=== PATIENT | female | born 1980 | race Caucasian/White ===

== ENCOUNTER 2016-08-19 10:47 | Emergency (ER) | payer MEDICARE ==
--- NOTE | 2016-08-19 13:21 | UC ---
Complaint Female HPI - HPI Summary HPI Summary: Gail has been having increased abdominal pressure, she feels like she needs to urinate and nothing comes, pain starts in center of lower abdomen and radiates right. denies buring with urination, fever, or flank pain. patient does have a history of right engulfed ovarian cyst - History Of Current Complaint Chief Complaint: UCGU Stated Complaint: URINARY COMPLAINT Time Seen by Provider: 08/19/16 12:22 Hx Obtained From: Patient Hx Last Menstrual Period: q 2 weeks, LMP 1.5 weeks ago Onset/Duration: Sudden Onset, Lasting Days Timing: Intermittent Severity Initially: Moderate Severity Currently: Moderate Pain Intensity: 6 Pain Scale Used: 0-10 Numeric Character: Dull, Cramping Aggravating Factor(s): Movement, Nothing - sitting Alleviating Factor(s): Position - Allergies/Home Medications Allergies/Adverse Reactions: Allergies Allergy/AdvReac Type Severity Reaction Status Date / Time Aspirin Allergy Difficulty Verified 08/19/16 12:46 Breathing Levofloxacin [From Levaquin] Allergy See Comment Verified 08/19/16 12:46 seasonal Allergy Sneezing Uncoded 08/19/16 12:46 Home Medications: Home Medications Albuterol HFA INHALER* [Ventolin HFA Inhaler*] 2 puff INH TID PRN 08/19/16 [ History Confirmed 08/19/16] Baclofen TAB* [Lioresal TAB*] 10 mg PO BID PRN 08/19/16 [History Confirmed 08/19] Budesonide/Formote 80/4.5(NF) [Symbicort 80/4.5 (NF)] 2 puff INH DAILY 08/19/16 [History Confirmed 08/19/16] Diclofenac 1% GEL (NF) [Voltaren 1% GEL (NF)] 1 applic TOPICAL TID PRN 08/19/16 [History Confirmed 08/19/16] Ipratropium HFA INHALER* [Atrovent Hfa Inhaler*] 2 puff INH DAILY 08/19/16 [ History Confirmed 08/19/16] Montelukast Sodium TAB* [Singulair TAB*] 10 mg PO DAILY 08/19/16 [History Confirmed 08/19/16] Omeprazole CAP* [Prilosec CAP* 20 MG] 40 mg PO DAILY 08/19/16 [History Confirmed 08/19/16] Tizanidine HCl 4 mg PO BEDTIME 08/19/16 [History Confirmed 08/19/16] Triamcinolone 0.1% CREAM (NF) [Kenalog 0.1% Cream (NF)] 1 applic TOPICAL QID [History Confirmed 08/19/16] celeCOXIB CAP* [CeleBREX CAP*] 200 mg PO DAILY 08/19/16 [History Confirmed 08/19] traMADol TAB* [Ultram*] 50 mg PO Q8H PRN 08/19/16 [History Confirmed 08/19/16] PMH/Surg Hx/FS Hx/Imm Hx Previously Healthy: Yes Respiratory History Of: Reports: COPD, Asthma - Surgical History Surgical History: Yes Surgery Procedure, Year, and Place: Ureteral stent for UPJ obstruction, placed then removed at age 23 yrs; partial thyroidectomy for pre cancerous cells and benign mas, B/ l knee surgeries x 5; tubal ligation, moles removed - Family History Known Family History: Positive: Hypertension - Social History Alcohol Use: Occasionally Substance Use Type: Excessive Caffeine Substance Use Comment - Amount & Last Used: 3 cups coffee daily Smoking Status (MU): Heavy Every Day Tobacco Smoker Review of Systems Constitutional: Negative Skin: Negative Eyes: Negative ENT: Negative Respiratory: Negative Cardiovascular: Negative Gastrointestinal: Abdominal Pain Genitourinary: Urgency Motor: Negative Neurovascular: Negative Musculoskeletal: Negative Neurological: Negative Psychological: Negative All Other Systems Reviewed And Are Negative: Yes Physical Exam Triage Information Reviewed: Yes Appearance: Well-Appearing, Well-Nourished, Pain Distress Vital Signs: Initial Vital Signs Temp 98.9 F 08/19/16 12:33 Pulse 88 08/19/16 12:33 Resp 18 08/19/16 12:33 BP 131/76 08/19/16 12:33 Vital Signs Reviewed: Yes Eye Exam: Normal Eyes: Positive: Conjunctiva Clear ENT Exam: Normal ENT: Positive: Normal ENT inspection, Hearing grossly normal, Pharynx normal, TMs normal Dental Exam: Normal Neck exam: Normal Neck: Positive: Supple, Nontender, No Lymphadenopathy Respiratory Exam: Normal Respiratory: Positive: Chest non-tender, Lungs clear, Normal breath sounds Cardiovascular Exam: Normal Cardiovascular: Positive: RRR, No Murmur, Pulses Normal - soft, tenderness in right lower abdomen, no rebound tenderness, palpable mass in right lower quad, does have history of cyst. no pain in pubic area, no signs of peritonitis. resonant sound over the mass in right side Abdominal Exam: Normal, Other Bowel Sounds: Positive: Present Musculoskeletal Exam: Normal Musculoskeletal: Positive: Strength Intact, ROM Intact, No Edema Neurological Exam: Normal Neurological: Positive: Alert, Muscle Tone Normal Psychological Exam: Normal Skin Exam: Normal Complaint Female Dx - Course Course Of Treatment: hx obtained, exam performed UA negative will send for culutre, recommedn increased fluid intake and ibuprofen for cyst pain. will call patient for any need to treat the urine culture. referral given for [facility] in the area, patient is new to [facility]. - Differential Dx/Diagnosis Differential Diagnosis/HQI/PQRI: Ovarian Cyst, Pelvic Inflammatory Disease, Sexually Transmitted Disease, Ureteral Stone, Urinary Tract Infection Provider Diagnoses: RLQ pain. urinary urgency. seasonal allergies Discharge - Discharge Plan Condition: Stable Disposition: HOME Prescriptions: Ibuprofen TAB* [Motrin TAB* 600 MG] 600 mg PO Q6H PRN #60 tab PRN Reason: Pain Montelukast Sodium TAB* [Singulair TAB*] 10 mg PO DAILY #30 tab Patient Education Materials: Pelvic Pain in Women (ED) Additional Instructions: Your urine was sent for culture. We will call if there is any need for antibiotics. I recommend follow up with A HYPERBARIC TECHNOLOGIST for the cyst. i believe the pressure in your lower abdomen is being caused by the cyst. i have called in a prescription for ibuprofen and refilled your singular for allergies.
[2016-08-19 13:30] VITALS: BP 112/70
== END 2016-08-19 13:31 | disposition home or self-care (01) ==
LOC: UCCORT 10:47
DX: R10.31 Right lower quadrant pain (principal); R39.15 Urgency of urination; J30.2 Other seasonal allergic rhinitis; J44.9 Chronic obstructive pulmonary disease, unspecified; F17.210 Nicotine dependence, cigarettes, uncomplicated; Z88.1 Allergy status to other antibiotic agents; Z88.6 Allergy status to analgesic agent
CPT/HCPCS: 87086; 99202; G0463